=== PATIENT | female | born 2000 | race Caucasian/White ===

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

== ENCOUNTER 2020-10-01 12:37 | Emergency (ER) | payer OTHER ==
[2020-10-01 12:45] VITALS: O2SAT 98
[2020-10-01] MEDS ORDERED: ISENTRESS PO SCH (13:00)
--- NOTE | 2020-10-01 13:25 | ERPHSYRPT ---
- History of Present Illness Source: patient Patient Subjective Stated Complaint: Pt states "I was giving covid vaccine and went to put the safety on the needle and the needle went into my left thumb. I immidiately washed the area with soap and water." Triage Nursing Assessment: Pt presented alert and oriented X3, skin pwd pt ambulates with an upright steady gait, able to speak in clear full sentences pt in no apparent respiratory distress. Physician History: 20 yo wf got stuck L 1st digit w CV19 vac needle. Pt w UTD Tetanus/HepB. Pt is R handed and denies other/previous injury. Timing/Duration: other (Prior to arrival) Modifying Factors: Worsens With: cold therapy, eating, immobilization, medication, movement, rest, acetaminophen, ibuprofen, nothing Associated Symptoms: denies symptoms Allergies/Adverse Reactions: No Known Drug Allergies Allergy (Verified 10/01/20 12:45) Home Medications: Sertraline HCl [Zoloft] 100 mg PO DAILY 10/01/20 [History] Hx Tetanus, Diphtheria Vaccination/Date Given: No Hx Influenza Vaccination/Date Given: Yes Hx Pneumococcal Vaccination/Date Given: No Immunizations Up to Date: Yes Travel Risk - International Travel Have you traveled outside of the country in past 3 weeks: No - Coronavirus Screening Are you exhibiting any of the following symptoms?: No Close contact with a COVID-19 positive Pt in past 14-21 Days: No - Vaccine Status Have you recieved a Covid-19 vaccination: No - Review of Systems Constitutional: No Symptoms Eyes: No Symptoms Ears, Nose, & Throat: No Symptoms Respiratory: No Symptoms Cardiac: No Symptoms Abdominal/Gastrointestinal: No Symptoms Genitourinary Symptoms: No Symptoms Skin: No Symptoms Neurological: No Symptoms Psychological: No Symptoms Endocrine: No Symptoms Hematologic/Lymphatic: No Symptoms Immunological/Allergic: No Symptoms - Past Medical History Pertinent Past Medical History: Yes Neurological History: No Pertinent History ENT History: No Pertinent History Cardiac History: No Pertinent History Respiratory History: No Pertinent History Endocrine Medical History: No Pertinent History Musculoskeletal History: No Pertinent History GI Medical History: No Pertinent History History: No Pertinent History Psycho-Social History: Depression - Past Surgical History Past Surgical History: Yes - Social History Smoking Status: Never smoker Exposure to second hand smoke: Yes Drug Use: none Patient Lives Alone: No Significant Family History: no pertinent family hx - Female History Hx Last Menstrual Period: 09/03/2020 Hx Now: No - Nursing Vital Signs Nursing Vital Signs: Initial Vital Signs Temperature 98.1 F 10/01/20 12:41 Pulse Rate 80 10/01/20 12:41 Respiratory Rate 20 10/01/20 12:41 Blood Pressure 142/76 10/01/20 12:41 O2 Sat by Pulse Oximetry 98 10/01/20 12:41 Pain Scale Pain Intensity 0 - Physical Exam General Appearance: no apparent distress, lethargy Eye Exam: PERRL/EOMI Ears, Nose, Throat Exam: normal ENT inspection Neck Exam: normal inspection Respiratory Exam: normal breath sounds, lungs clear, airway intact, No respiratory distress Cardiovascular Exam: regular rate/rhythm, normal heart sounds, normal peripheral pulses, No murmur Gastrointestinal/Abdomen Exam: soft, normal bowel sounds, No tenderness Back Exam: normal inspection Extremity Exam: other (Very superficial puncture wound L distal 1st digit/Good hemostasis) Neurologic Exam: alert, oriented x 3, cooperative, corrections officer II-XII nml as tested, normal mood/affect, nml cerebellar function, nml station & gait, sensation nml, No motor deficits, No sensory deficit Skin Exam: normal color, warm, dry, No rash Lymphatic Exam: No adenopathy SpO2 Interpretation: normal SpO2: 98 O2 Delivery: Room Air Ordered Tests: Active Orders 24 hr Category Date Time Status Wound Care STAT Care 10/01/20 12:56 Completed CBC W DIFF Stat Lab 10/01/20 13:47 Completed CMP Stat Lab 10/01/20 13:47 Completed HCG QUALITATIVE,SERUM Stat Lab 10/01/20 13:47 Completed Medication Summary Discontinued Medications Generic Name Dose Route Start Last Admin Trade Name Moon PRN Reason Stop Dose Admin Emtricitabine/Tenofovir 1 tablet 10/01/20 12:56 10/01/20 14:39 Truvada 200 Mg-300 Mg Tablet PO 10/01/20 12:57 Not Given STAT STA Raltegravir 400 mg 10/01/20 13:00 Isentress PO 10/31/20 12:59 STAT ANIKA Lab/Rad Data: Laboratory Result Diagrams 10/01/20 13:47 10/01/20 13:47 Laboratory Results 10/01/20 10/01/20 10/01/20 Range/Units 13:47 13:47 13:47 WBC 12.9 H (4.0-10.5) K/mm3 RBC 3.94 L (4.1-5.4) M/mm3 Hgb 11.1 L (12.0-16.0) gm/dl Hct 35.4 (35-47) % MCV 89.8 (78-100) fl MCH 28.2 (26-32) pg MCHC 31.4 L (32-36) g/dl RDW 13.1 (11.5-14.0) % Plt Count 380 (150-450) K/mm3 MPV 10.1 (7.5-11.0) fl Gran % 61.1 (36.0-66.0) % Eos # (Auto) 0.17 (0-0.5) Absolute Lymphs (auto) 3.81 (1.0-4.6) Absolute Monos (auto) 1.01 (0.0-1.3) Lymphocytes % 29.6 (24.0-44.0) % Monocytes % 7.8 (0.0-12.0) % Eosinophils % 1.3 (0.00-5.0) % Basophils % 0.2 (0.0-0.4) % Absolute Granulocytes 7.86 H (1.4-6.9) Basophils # 0.03 (0-0.4) Sodium 138 (137-145) mmol/L Potassium 4.2 (3.5-5.1) mmol/L Chloride 103 (98-107) mmol/L Carbon Dioxide 30 (22-30) mmol/L Anion Gap 8.6 (5-15) MEQ/L BUN 10 (7-17) mg/dL Creatinine 0.72 (0.52-1.04) mg/dL Estimated GFR > 60.0 ML/MIN Glucose 92 (74-106) mg/dL Calcium 9.1 (8.4-10.2) mg/dL Total Bilirubin 0.30 (0.2-1.3) mg/dL AST 20 (14-36) U/L ALT 12 (0-35) U/L Alkaline Phosphatase 74 (38-126) U/L Serum Total Protein 6.8 (6.3-8.2) g/dL Albumin 4.0 (3.5-5.0) g/dL Serum , Qual NEGATIVE (Negative) - Progress Progress Note: 10/01/20 14:32 Hiv neg on pt who received the CV19 vaccine, so pt released wo PEP. Pt extremely low risk from superficial needle stick. Tetanus/HepB up to date on ER pt. Counseled pt/family regarding: need for follow-up - Departure Departure Disposition: Home Clinical Impression: Needle stick injury of finger Condition: Stable Critical Care Time: No Referrals: [facility] [Primary Care Provider] - Instructions: Blood or Body Fluid Exposure Additional Instructions: Wash wound twice a day with soap/water Watch for signs of infection-redness/pain/pus/temperature greater than 100.5
[2020-10-01 13:53] LABS: Absolute Neutrophil Ct (ANC) 7.86 (1.4-6.9); BASOPHIL % 0.2 % (0.0-0.4); Basophil (Absolute #) 0.03 (0-0.4); Eosinophil % 1.3 % (0.00-5.0); Eosinophil (Absolute #) 0.17 (0-0.5); Hematocrit 35.4 % (35-47); Hemoglobin 11.1 gm/dl (12.0-16.0); Lymphocyte (Absolute #) 3.81 (1.0-4.6); Lymphocytes % 29.6 % (24.0-44.0); Mean Cell Volume 89.8 fl (78-100); Mean Corpuscular Hemoglobin 28.2 pg (26-32); Mean Corpuscular Hgb Concent. 31.4 g/dl (32-36); Mean Platelet Volume 10.1 fl (7.5-11.0); Monocyte (Absolute #) 1.01 (0.0-1.3); Monocytes % 7.8 % (0.0-12.0); Neutrophil % 61.1 % (36.0-66.0); Platelet Count 380 K/mm3 (150-450); Red Blood Count 3.94 M/mm3 (4.1-5.4); Red Cell Distribution Width 13.1 % (11.5-14.0); White Blood Count 12.9 K/mm3 (4.0-10.5)
[2020-10-01 14:07] LABS: ALKALINE PHOSPHATASE 74 U/L (38-126); ANION GAP 8.6 MEQ/L (5-15); BLOOD UREA NITROGEN 10 mg/dL (7-17); CHLORIDE 103 mmol/L (98-107); Calcium 9.1 mg/dL (8.4-10.2); Carbon Dioxide 30 mmol/L (22-30); Creatinine 1 0.72 mg/dL (0.52-1.04); EST GLOMERULAR FILTRATION RATE > 60.0 ML/MIN; Glucose 92 mg/dL (74-106); Potassium 4.2 mmol/L (3.5-5.1); SGOT/AST 20 U/L (14-36); SGPT/ALT 12 U/L (0-35); SODIUM 138 mmol/L (137-145); Total Protein 6.8 g/dL (6.3-8.2)
[2020-10-01 14:14] VITALS: BP 134/62; PULSE 68
[2020-10-01] MEDS: TRUVADA 200 MG-300 MG TABLET PO STA (14:39)
== END 2020-10-01 14:48 | disposition home or self-care (01) ==
LOC: ER - EH 12:37
DX: S61.032A Puncture wound without foreign body of left thumb without damage to nail, initial encounter (principal); W46.0XXA Contact with hypodermic needle, initial encounter; Y93.89 Activity, other specified; Y92.89 Other specified places as the place of occurrence of the external cause
CPT/HCPCS: 36415; 80053; 81025; 85025; 86317; 86803; 87340; 87389; 99283

== ENCOUNTER 2021-05-10 21:59 | Observation (INO) | payer OTHER ==
[2021-05-10 23:23] LABS: Appearance SLIGHTLY CLOUDY (CLEAR); Bilirubin NEGATIVE (NEGATIVE); Blood NEGATIVE Ery/ul (0-5); Glucose NEGATIVE (NEGATIVE); Ketones NEGATIVE (NEGATIVE); Leukocyte Esterase NEGATIVE (NEGATIVE); Mucus SLIGHT /HPF (NEGATIVE); Nitrite NEGATIVE (NEGATIVE); Protein,Urine Dip NEGATIVE (Negative); Specific Gravity 1.015 (1.005-1.025); Urobilinogen NEGATIVE mg/dL (0-1)
[2021-05-10 23:35] LABS: Amphetamine,Urine NEGATIVE (NEGATIVE); Barbiturate,Urine NEGATIVE (NEGATIVE); Benzodiazepine,Urine NEGATIVE (NEGATIVE); Cocaine,Urine NEGATIVE (NEGATIVE); Methadone,Urine NEGATIVE (NEGATIVE); Opiate,Urine NEGATIVE (NEGATIVE); PCP,Urine NEGATIVE (NEGATIVE); THC,Urine NEGATIVE (NEGATIVE)
[2021-05-10] MEDS ORDERED: Dulcolax 10 MG SUPP ONE (23:35)
[2021-05-10] MEDS: Dulcolax 10 MG SUPP PR ONE (23:36)
[2021-05-13 17:04] VITALS: BP 136/84; PULSE 78; O2SAT 97
== END 2021-05-10 23:59 | disposition home or self-care (01) ==
LOC: OB 21:59
PROVIDERS: ADMIT Obstetrics & Gynecology; ATTEND Obstetrics & Gynecology
DX: Z34.83 Encounter for supervision of other normal pregnancy, third trimester (principal); Z3A.29 29 weeks gestation of pregnancy
CPT/HCPCS: 80307; 81001; G0378; A9270-GY

== ENCOUNTER 2021-05-13 19:28 | Observation (INO) | payer OTHER ==
[2021-05-13 20:01] VITALS: O2SAT 98
[2021-05-13 20:07] VITALS: BP 120/66; PULSE 93
== END 2021-05-13 20:30 | disposition home or self-care (01) ==
LOC: OB 19:28
PROVIDERS: ADMIT Obstetrics & Gynecology; ATTEND Obstetrics & Gynecology
DX: Z34.83 Encounter for supervision of other normal pregnancy, third trimester (principal); Z3A.29 29 weeks gestation of pregnancy
CPT/HCPCS: 59025; G0378

== ENCOUNTER 2021-05-30 12:40 | Observation (INO) | payer OTHER ==
[2021-05-30 13:18] VITALS: PULSE 78; O2SAT 99
[2021-05-30 15:28] VITALS: BP 136/63
== END 2021-05-30 13:35 | disposition home or self-care (01) ==
LOC: OB 12:40
PROVIDERS: ADMIT Obstetrics & Gynecology; ATTEND Obstetrics & Gynecology
DX: Z34.83 Encounter for supervision of other normal pregnancy, third trimester (principal); Z3A.32 32 weeks gestation of pregnancy
CPT/HCPCS: 59025; G0378

== ENCOUNTER 2021-06-06 12:33 | Observation (INO) | payer OTHER ==
[2021-06-06 13:54] VITALS: BP 121/63; PULSE 85
== END 2021-06-06 13:05 | disposition home or self-care (01) ==
LOC: OB 12:33
PROVIDERS: ADMIT Obstetrics & Gynecology; ATTEND Obstetrics & Gynecology
DX: Z34.83 Encounter for supervision of other normal pregnancy, third trimester (principal); Z3A.33 33 weeks gestation of pregnancy
CPT/HCPCS: 59025; G0378

== ENCOUNTER 2021-06-13 11:25 | Observation (INO) | payer OTHER ==
[2021-06-13 12:12] VITALS: BP 120/75; PULSE 96
== END 2021-06-13 12:02 | disposition home or self-care (01) ==
LOC: OB 11:25
PROVIDERS: ADMIT Obstetrics & Gynecology; ATTEND Obstetrics & Gynecology
DX: Z34.83 Encounter for supervision of other normal pregnancy, third trimester (principal); Z3A.34 34 weeks gestation of pregnancy
CPT/HCPCS: 59025; G0378

== ENCOUNTER 2021-06-26 08:41 | Observation (INO) | payer OTHER ==
[2021-06-26 09:40] VITALS: BP 110/64
== END 2021-06-26 09:20 | disposition home or self-care (01) ==
LOC: OB 08:41
PROVIDERS: ADMIT Obstetrics & Gynecology; ATTEND Obstetrics & Gynecology
DX: Z34.83 Encounter for supervision of other normal pregnancy, third trimester (principal); Z3A.36 36 weeks gestation of pregnancy
CPT/HCPCS: 59025; G0378

== ENCOUNTER 2021-07-05 12:31 | Observation (INO) | payer OTHER ==
[2021-07-05 12:55] VITALS: BP 128/75; PULSE 79
== END 2021-07-05 13:14 | disposition home or self-care (01) ==
LOC: MED SURG 12:31
PROVIDERS: ADMIT Obstetrics & Gynecology; ATTEND Obstetrics & Gynecology
DX: Z34.83 Encounter for supervision of other normal pregnancy, third trimester (principal); Z3A.37 37 weeks gestation of pregnancy
CPT/HCPCS: 59025; G0378

== ENCOUNTER 2021-07-07 23:21 | Inpatient (IN) | payer OTHER ==
[2021-07-08] MEDS ORDERED: FENTANYL 2 MCG-BUPIV 0.125%-NS 250 ML Epidur 250 ML EPIDURAL SCH (06:00)
[2021-07-08] MEDS ORDERED: Zofran 4 MG/2 ML VIAL IV PRN (06:00)
[2021-07-08] MEDS ORDERED: TYLENOL EXTRA STRENGTH 500 MG PO PRN (06:00)
[2021-07-08] MEDS ORDERED: Lactated Ringers 1,000 ML IV ONE (06:00)
[2021-07-08] MEDS ORDERED: Ephedrine Sulfate 50 MG/ML IV PRN (07:00)
[2021-07-08] MEDS ORDERED: PITOCIN 30 UNITS/ LR 500 ML 30 UNITS/500 ML PLAST..BAG IV SCH ×2 (07:00→12:00)
[2021-07-08] MEDS ORDERED: BRETHINE 1 MG/ML SQ PRN (07:00)
[2021-07-08 07:04] LABS: Absolute Neutrophil Ct (ANC) 10.76 (1.4-6.9); Basophil (Absolute #) 0.03 (0-0.4); Eosinophil % 1.8 % (0.00-5.0); Hemoglobin 8.9 gm/dl (12.0-16.0); Lymphocyte (Absolute #) 4.84 (1.0-4.6); Lymphocytes % 28.8 % (24.0-44.0); Mean Cell Volume 82.4 fl (78-100); Mean Corpuscular Hemoglobin 26.2 pg (26-32); Mean Corpuscular Hgb Concent. 31.8 g/dl (32-36); Mean Platelet Volume 9.2 fl (7.5-11.0); Monocytes % 5.3 % (0.0-12.0); Neutrophil % 63.9 % (36.0-66.0); Platelet Count 334 K/mm3 (150-450); Red Cell Distribution Width 14.2 % (11.5-14.0); White Blood Count 16.8 K/mm3 (4.0-10.5)
[2021-07-08 07:09] LABS: Appearance CLEAR (CLEAR); Bilirubin NEGATIVE (NEGATIVE); Blood NEGATIVE Ery/ul (0-5); Glucose NEGATIVE (NEGATIVE); Ketones NEGATIVE (NEGATIVE); Leukocyte Esterase NEGATIVE (NEGATIVE); Mucus SLIGHT /HPF (NEGATIVE); Nitrite NEGATIVE (NEGATIVE); Protein,Urine Dip NEGATIVE (Negative); Urobilinogen NEGATIVE mg/dL (0-1)
[2021-07-08] MEDS ORDERED: Sensorcaine 0.25% 10 ML ONE (07:28)
[2021-07-08 07:52] LABS: Amphetamine,Urine NEGATIVE (NEGATIVE); Barbiturate,Urine NEGATIVE (NEGATIVE); Benzodiazepine,Urine NEGATIVE (NEGATIVE); Cocaine,Urine NEGATIVE (NEGATIVE); Methadone,Urine NEGATIVE (NEGATIVE); Opiate,Urine NEGATIVE (NEGATIVE); PCP,Urine NEGATIVE (NEGATIVE); THC,Urine NEGATIVE (NEGATIVE)
[2021-07-08] MEDS: Lactated Ringers 1,000 ML IV SCH ×2 (08:57→15:42)
[2021-07-08] MEDS ORDERED: XYLOCAINE 1% HCL 20 ML MDV IJ PRN (12:00)
[2021-07-08] MEDS ORDERED: Dermoplast Spray TP PRN (17:32)
[2021-07-08] MEDS ORDERED: LANSINOH 40 GM TOP PRN (17:32)
[2021-07-08] MEDS ORDERED: Mylicon 80MG PO PRN (17:32)
[2021-07-08] MEDS ORDERED: TUCKS TP PRN (17:32)
--- NOTE | 2021-07-08 21:51 | PCM.HP ---
History of Present Illness - Chief Complaint Chief Complaint: LABOR INDUCTION FOR SGA, COVID DURING AND [facility] REC History of Present Illness: is a 20 year old female. 20 YO IUP AT 38 WKS WITH CURRENT HX OF DIAGNOSED POSITIVE INFLUENZA AND CURRENT HX OF SMALL FOR GESTATIONAL AGE FETUS HERE FOR INDUCTION. PT WITH RECENTLY DIAGNOSED COVID AND RECEIVED MONOCLONAL ANTIBODY FOR TREATMENT. PT HAD BEEN SEEING M DR LEACH WHO RECOMMENDS DELIVERY AT 38 WKS GESTATION SECONDARY TO RECENT HX OF COVID, SMALL FOR GESTATIONAL AGE, AND CURRENT HX OF BEING DIAGNOSED WITH INFLUENZA. HER CONCERN WAS PLACENTAL ABNORMALITY THAT MAY BE EXACERBATED WITH HER RECENT DIAGNOSIS OF C OVID AND SUBSEQUENT SMALL FOR GESTATIONAL AGE FETUS. PT STATES IRREGULAR CONTX AND DENIES VAGINAL BLEEDING OR SROM. Medications & Allergies Home Medications: Home Medication List Sertraline HCl [Zoloft] 100 mg PO DAILY 10/01/20 [History Confirmed 07/08/21] Buspirone HCl 5 mg [Buspar 5 mg] 10 mg PO DAILY 05/10/21 [History Confirmed 07/08/21] Calcium Carbonate [Tums Smoothies] 600 mg PO Q6H PRN PRN 05/10/21 [History Confirmed 07/08/21] Vits W-Ca,Fe,FA(<1Mg) [] 1 tab PO DAILY 05/10/21 [History Confirmed 07/08/21] Fluticasone Propionate [Flonase NASAL] 16 gm NS DAILY 07/08/21 [History Confirmed 07/08/21] Loratadine [Claritin] 10 mg PO DAILY 07/08/21 [History Confirmed 07/08/21] Allergies/Adverse Reactions: Allergies Allergy/AdvReac Type Severity Reaction Status Date / Time No Known Drug Allergies Allergy Verified 07/08/21 07:20 - Past Medical History Past Medical History: Yes Neurological History: No Pertinent History ENT History: No Pertinent History Cardiac History: No Pertinent History CARDIAC HISTORY: No Pertinent History Respiratory History: No Pertinent History, Other (CONGESTION ) Endocrine Medical History: No Pertinent History Musculoskelatal History: No Pertinent History GI Medical History: No Pertinent History History: No Pertinent History Pyscho-Social History: Depression Reproductive Disorders: No Pertinent History, Other (GRAVID) Comment: T&A removed 2008. wisdom teeth removed - Female History Expected Date of Delivery: 07/22/21 - Past Surgical History Past Surgical History: Yes Neuro Surgical History: No Pertinent History Cardiac History: No Pertinent History Respiratory Surgery: No Pertinent History GI Surgical History: No Pertinent History Genitourinary Surgical Hx: No Pertinent History Musculskeletal Surgical Hx: No Pertinent History Female Surgical History: No Pertinent History, Other ( X 1) - Social History Smoking Status: Never smoker Exposure to second hand smoke: Yes Alcohol: None Drug Use: none Significant Family History: no pertinent family hx - Physical Exam Vital Signs: Vital Signs - 24 hr Temp Pulse Resp BP BP Pulse Ox 07/08/21 21:00 98.8 F 82 18 132/71 07/08/21 20:00 98.8 F 82 18 132/71 07/08/21 19:00 98.0 F 75 20 133/73 07/08/21 18:30 98.0 F 18 117/65 07/08/21 18:00 98.0 F 18 L 18 117/61 07/08/21 17:45 98.0 F 18 L 18 118/68 07/08/21 17:30 98.0 F 83 18 121/66 07/08/21 17:15 98.0 F 74 18 119/78 07/08/21 17:00 98.0 F 92 H 18 117/76 07/08/21 16:45 98.0 F 84 18 117/56 07/08/21 16:36 98.0 F 101 H 18 141/64 07/08/21 16:30 98.0 F 86 18 123/59 07/08/21 16:15 98.0 F 86 18 123/59 07/08/21 16:00 98.0 F 84 18 117/56 07/08/21 15:45 98.0 F 76 18 117/60 07/08/21 15:30 97.8 F 82 18 115/56 07/08/21 15:15 97.8 F 74 18 120/56 07/08/21 15:00 97.8 F 83 18 125/66 07/08/21 14:45 97.8 F 83 18 125/66 07/08/21 14:30 97.8 F 89 18 120/60 07/08/21 14:15 97.8 F 89 18 120/60 07/08/21 14:00 97.8 F 86 18 124/62 07/08/21 13:45 97.8 F 86 20 124/60 07/08/21 13:30 97.8 F 81 18 125/58 07/08/21 13:15 97.8 F 85 18 124/57 07/08/21 13:00 97.8 F 101 H 18 121/59 07/08/21 12:45 97.8 F 86 18 124/62 07/08/21 12:30 97.8 F 86 18 124/62 07/08/21 12:15 97.8 F 73 18 99/55 07/08/21 12:00 97.8 F 85 18 90/51 90/51 07/08/21 11:45 97.8 F 85 18 90/51 07/08/21 11:30 96.8 F 73 18 97/52 07/08/21 11:15 96.8 F 76 18 105/52 07/08/21 11:00 96.8 F 76 18 114/58 07/08/21 10:45 96.8 F 85 18 124/61 07/08/21 10:30 96.8 F 86 18 120/62 07/08/21 10:15 96.8 F 90 18 120/61 07/08/21 10:00 99 H 18 125/70 07/08/21 09:45 96 H 18 115/67 07/08/21 09:30 96 H 18 116/62 07/08/21 09:15 80 18 122/66 07/08/21 09:09 96.8 F 96 H 16 116/62 96 07/08/21 09:00 93 H 18 121/61 07/08/21 08:45 88 18 121/56 07/08/21 08:30 76 18 126/58 100 07/08/21 08:15 100 H 18 118/57 100 07/08/21 08:00 98.0 F 91 H 18 115/67 95/55 100 07/08/21 07:45 86 18 126/62 100 07/08/21 07:30 90 18 146/80 100 07/08/21 07:00 124/60 07/08/21 06:00 97 F 88 20 127/69 98 General Appearance: no apparent distress Neurologic Exam: alert, oriented x 3, cooperative Pelvic Exam: other (2/80/-2/VTX/INTACT) Rectal Exam: deferred Results - Labs Lab/Micro Results: Lab Results-Last 24 Hours 07/08/21 07/08/21 07/08/21 Range/Units 06:00 06:00 06:00 WBC 16.8 H (4.0-10.5) K/mm3 RBC 3.40 L (4.1-5.4) M/mm3 Hgb 8.9 L (12.0-16.0) gm/dl Hct 28.0 L (35-47) % MCV 82.4 (78-100) fl MCH 26.2 (26-32) pg MCHC 31.8 L (32-36) g/dl RDW 14.2 H (11.5-14.0) % Plt Count 334 (150-450) K/mm3 MPV 9.2 (7.5-11.0) fl Gran % 63.9 (36.0-66.0) % Eos # (Auto) 0.30 (0-0.5) Absolute Lymphs (auto) 4.84 H (1.0-4.6) Absolute Monos (auto) 0.90 (0.0-1.3) Lymphocytes % 28.8 (24.0-44.0) % Monocytes % 5.3 (0.0-12.0) % Eosinophils % 1.8 (0.00-5.0) % Basophils % 0.2 (0.0-0.4) % Absolute Granulocytes 10.76 H (1.4-6.9) Basophils # 0.03 (0-0.4) Urine Color YELLOW (YELLOW) Urine Appearance CLEAR (CLEAR) Urine pH 7.0 (5-6) Ur Specific [place] 1.010 (1.005-1.025) Urine Protein NEGATIVE (Negative) Urine Ketones NEGATIVE (NEGATIVE) Urine Blood NEGATIVE (0-5) Shashi/ul Urine Nitrite NEGATIVE (NEGATIVE) Urine Bilirubin NEGATIVE (NEGATIVE) Urine Urobilinogen NEGATIVE (0-1) mg/dL Ur Leukocyte Esterase NEGATIVE (NEGATIVE) Urine WBC (Auto) NONE (0-5) /HPF Urine RBC (Auto) NONE (0-2) /HPF U Epithel Cells (Auto) NONE (FEW) /HPF Urine Bacteria (Auto) NONE (NEGATIVE) /HPF Urine Mucus (Auto) SLIGHT (NEGATIVE) /HPF Urine Culture Reflexed NO (NO) Urine Glucose NEGATIVE (NEGATIVE) mg/dL Urine Opiates Level NEGATIVE (NEGATIVE) Ur Methadone NEGATIVE (NEGATIVE) Urine Barbiturates NEGATIVE (NEGATIVE) Ur Phencyclidine (PCP) NEGATIVE (NEGATIVE) Urine Amphetamine NEGATIVE (NEGATIVE) U Benzodiazepine Level NEGATIVE (NEGATIVE) Urine Cocaine NEGATIVE (NEGATIVE) Urine Marijuana (THC) NEGATIVE (NEGATIVE) Assessment/Plan (1) History of COVID-19 Current Visit: Yes Status: Acute Code(s): Z86.16 - PERSONAL HISTORY OF COVID-19 (2) Small for gestational age fetus Current Visit: Yes Status: Acute Code(s): VHP3688 - (3) Influenza A Current Visit: Yes Status: Acute Code(s): J10.1 - FLU DUE TO OTH IDENT INFLUENZA VIRUS W OTH RESP MANIFEST
--- NOTE | 2021-07-08 21:56 | PCM.BN ---
Brief Admission Note - Admission Note Brief Admisson Note: Patient admitted @ 07/08/21 08:25 to MED SURG. Medication List reviewed and reconciled. 20 YO IUP 38 WKS CURRENTLY ADMITTED FOR INDUCTION SECONDARY TO RECOMMENDATION BY Rosemarie LEACH SECONDARY TO RECENT HX OF COVID WITH SUBSEQUENT SMALL FOR GESTATIONAL AGE FETUS AND CURRENT HX OF INFLUENZA. DENIES SROM OR VAGINAL BLEEDING.
[2021-07-08] MEDS: Colace 100 MG PO SCH (23:40)
[2021-07-09] MEDS: MOTRIN 400 MG PO PRN ×2 (00:25→09:51)
[2021-07-09] MEDS: Lactated Ringers 1,000 ML IV SCH (00:27)
[2021-07-09 05:57] LABS: Basophil (Absolute #) 0.02 (0-0.4); Eosinophil % 1.1 % (0.00-5.0); Eosinophil (Absolute #) 0.21 (0-0.5); Hematocrit 29.8 % (35-47); Hemoglobin 9.3 gm/dl (12.0-16.0); Lymphocyte (Absolute #) 4.38 (1.0-4.6); Lymphocytes % 22.6 % (24.0-44.0); Mean Cell Volume 82.5 fl (78-100); Mean Corpuscular Hemoglobin 25.8 pg (26-32); Mean Corpuscular Hgb Concent. 31.2 g/dl (32-36); Mean Platelet Volume 9.8 fl (7.5-11.0); Monocyte (Absolute #) 1.19 (0.0-1.3); Monocytes % 6.1 % (0.0-12.0); Neutrophil % 70.1 % (36.0-66.0); Platelet Count 321 K/mm3 (150-450); Red Blood Count 3.61 M/mm3 (4.1-5.4); Red Cell Distribution Width 14.3 % (11.5-14.0); White Blood Count 19.4 K/mm3 (4.0-10.5)
[2021-07-09 08:03] LABS: HBsAg Screen Negative (Negative)
[2021-07-09] MEDS ORDERED: Adacel Vial IM ONE (09:00)
--- NOTE | 2021-07-09 09:23 | PCM.NOTE ---
Date and Time: 07/09/21920 Subjective Assessment: PT RESTING IN BED AND DOING WELL. ABLE TO AMBULATE AND TOLERATE DIET VSS AFEBRILE ABD; SOFT UTERUS; FIRM LOCHIA; MILD HGB; 9.3 A/P SP PPD 1 DESIRES TO GO HOME TODAY WILL DC HOME TODAY AND FU OFFICE IN 3 WKS OBJECTIVE DATA Vital Signs: Vital Signs - 24 hr Temp Pulse Resp BP BP Pulse Ox 07/09/21 08:00 98.3 F 93 H 18 128/71 99 07/09/21 04:00 98.1 F 76 18 131/76 07/09/21 00:00 98.1 F 79 18 140/70 07/08/21 21:00 98.8 F 82 18 132/71 07/08/21 20:00 98.8 F 82 18 132/71 07/08/21 19:00 98.0 F 75 20 133/73 07/08/21 18:30 98.0 F 18 117/65 07/08/21 18:00 98.0 F 18 L 18 117/61 07/08/21 17:45 98.0 F 18 L 18 118/68 07/08/21 17:30 98.0 F 83 18 121/66 07/08/21 17:15 98.0 F 74 18 119/78 07/08/21 17:00 98.0 F 92 H 18 117/76 07/08/21 16:45 98.0 F 84 18 117/56 07/08/21 16:36 98.0 F 101 H 18 141/64 07/08/21 16:30 98.0 F 86 18 123/59 07/08/21 16:15 98.0 F 86 18 123/59 07/08/21 16:00 98.0 F 84 18 117/56 07/08/21 15:45 98.0 F 76 18 117/60 07/08/21 15:30 97.8 F 82 18 115/56 07/08/21 15:15 97.8 F 74 18 120/56 07/08/21 15:00 97.8 F 83 18 125/66 07/08/21 14:45 97.8 F 83 18 125/66 07/08/21 14:30 97.8 F 89 18 120/60 07/08/21 14:15 97.8 F 89 18 120/60 07/08/21 14:00 97.8 F 86 18 124/62 07/08/21 13:45 97.8 F 86 20 124/60 07/08/21 13:30 97.8 F 81 18 125/58 07/08/21 13:15 97.8 F 85 18 124/57 07/08/21 13:00 97.8 F 101 H 18 121/59 07/08/21 12:45 97.8 F 86 18 124/62 07/08/21 12:30 97.8 F 86 18 124/62 07/08/21 12:15 97.8 F 73 18 99/55 07/08/21 12:00 97.8 F 85 18 90/51 90/51 07/08/21 11:45 97.8 F 85 18 90/51 07/08/21 11:30 96.8 F 73 18 97/52 07/08/21 11:15 96.8 F 76 18 105/52 07/08/21 11:00 96.8 F 76 18 114/58 07/08/21 10:45 96.8 F 85 18 124/61 07/08/21 10:30 96.8 F 86 18 120/62 07/08/21 10:15 96.8 F 90 18 120/61 07/08/21 10:00 99 H 18 125/70 07/08/21 09:45 96 H 18 115/67 07/08/21 09:30 96 H 18 116/62 Pain Assessment - Last Documented Pain Intensity [Lower] 1 Pain Intensity 5 Intake and Output: Intake & Output 07/06/21 07/07/21 07/08/21 07/09/21 11:59 11:59 11:59 11:59 Intake Total 3500 Output Total 1700 Balance 1800 Weight 209 kg Lab Results: Lab Results-Last 24 Hours 07/08/21 07/09/21 Range/Units 06:00 04:00 WBC 19.4 H (4.0-10.5) K/mm3 RBC 3.61 L (4.1-5.4) M/mm3 Hgb 9.3 L (12.0-16.0) gm/dl Hct 29.8 L (35-47) % MCV 82.5 (78-100) fl MCH 25.8 L (26-32) pg MCHC 31.2 L (32-36) g/dl RDW 14.3 H (11.5-14.0) % Plt Count 321 (150-450) K/mm3 MPV 9.8 (7.5-11.0) fl Gran % 70.1 H (36.0-66.0) % Eos # (Auto) 0.21 (0-0.5) Absolute Lymphs (auto) 4.38 (1.0-4.6) Absolute Monos (auto) 1.19 (0.0-1.3) Lymphocytes % 22.6 L (24.0-44.0) % Monocytes % 6.1 (0.0-12.0) % Eosinophils % 1.1 (0.00-5.0) % Basophils % 0.1 (0.0-0.4) % Absolute Granulocytes 13.60 H (1.4-6.9) Basophils # 0.02 (0-0.4) Hep Bs Antigen Negative (Negative) Multi-Disciplinary Progress Notes: Multi-Disciplinary Progress Notes 07/08/21 17:14 Respiratory Note by Simran Blanchard PRESENT DURING DELIVERY. NO RESPIRATORY INTERVENTIONS REQUIRED. Initialized on 07/08/21 17:14 - END OF NOTE Assessment/Plan (1) History of COVID-19 Current Visit: Yes Status: Acute Code(s): Z86.16 - PERSONAL HISTORY OF COVID-19 (2) Small for gestational age fetus Current Visit: Yes Status: Acute Code(s): [id number] - (3) Influenza A Current Visit: Yes Status: Acute Code(s): J10.1 - FLU DUE TO OTH IDENT INFLUENZA VIRUS W OTH RESP MANIFEST (4) Vaginal delivery Current Visit: Yes Status: Acute Code(s): O80 - ENCOUNTER FOR FULL-TERM UNCOMPLICATED DELIVERY
--- NOTE | 2021-07-09 09:28 | PCM.DS ---
Discharge Summary Date of Admission: 07/08/21 08:25 Admitting Physician: DUANE PINEDA DO Consults: Consults on Case 07/08/21 08:00 Notify Anesthesia Provider PRN Primary Care Provider: FRANCK GERMAN Allergies Allergies No Known Drug Allergies Allergy (Verified 07/08/21 07:20) Hospital Summary - Hospital Course Hospital Course: PT WAS ADMITTED ON JUL 08 FOR INDUCTION SECONDARY TO HX OF HAVING COVID RECENTLY DIAGNOSED SHE HAD BEEN TREATED WITH MONOCLONAL ANTIBODY AND CURRENTLY BEING FOLLLOWED BY M DR LEACH FOR SMALL FOR GESTATIONAL AGE FETUS WHO DETERMINED TO HAVE PT INDUCED SECONDARY TO THE FINDINGS. PT ALSO KNOWN TO HAVE INFLUENZA AT THE TIME OF ADMISSION. PT WAS STARTED ON PITOCIN AND SUBSEQUENTLY DELIVERED LIVE BABY GIRL WITHOUT COMPLICATION. DURING PERIOD DID WELL AND TODAY DESIRES TO BE DISCHARGED HOME. PT WILL FU IN OFFICE IN 3 WKS ADVISED AND WAS TOLD TO CALL OFFICE FOR ANY ISSUES THAT MAY ARISE. ALL QUESTIONS ANSWERED TO HER SATISFACTION. - Vitals & Intake/Output Vital Signs: Vital Signs Temperature 98.3 F 07/09/21 08:00 Pulse Rate 93 H 07/09/21 08:00 Respiratory Rate 18 07/09/21 08:00 Blood Pressure 128/71 07/09/21 08:00 O2 Sat by Pulse Oximetry 99 07/09/21 08:00 Intake & Output: Intake & Output 07/06/21 07/07/21 07/08/21 07/09/21 11:59 11:59 11:59 11:59 Intake Total 3500 Output Total 1700 Balance 1800 Weight 209 kg - Lab Result Diagrams: 07/09/21 04:00 Lab Results-Last 24 Hrs: Lab Results-Last 24 Hours 07/08/21 07/09/21 Range/Units 06:00 04:00 WBC 19.4 H (4.0-10.5) K/mm3 RBC 3.61 L (4.1-5.4) M/mm3 Hgb 9.3 L (12.0-16.0) gm/dl Hct 29.8 L (35-47) % MCV 82.5 (78-100) fl MCH 25.8 L (26-32) pg MCHC 31.2 L (32-36) g/dl RDW 14.3 H (11.5-14.0) % Plt Count 321 (150-450) K/mm3 MPV 9.8 (7.5-11.0) fl Gran % 70.1 H (36.0-66.0) % Eos # (Auto) 0.21 (0-0.5) Absolute Lymphs (auto) 4.38 (1.0-4.6) Absolute Monos (auto) 1.19 (0.0-1.3) Lymphocytes % 22.6 L (24.0-44.0) % Monocytes % 6.1 (0.0-12.0) % Eosinophils % 1.1 (0.00-5.0) % Basophils % 0.1 (0.0-0.4) % Absolute Granulocytes 13.60 H (1.4-6.9) Basophils # 0.02 (0-0.4) Hep Bs Antigen Negative (Negative) - Procedures and Test Procedures and Tests throughout Hospitalization: Therapy Orders & Screens 07/08/21 17:14 Standby ROUTINE Comment: Diagnosis: LABOR INDUCTION FOR SGA, COVID DURING AND M REC Final Diagnosis/Problem List - Final Discharge Diagnosis/Problem (1) History of COVID-19 Current Visit: Yes Status: Acute Code(s): Z86.16 - PERSONAL HISTORY OF COVID-19 (2) Small for gestational age fetus Current Visit: Yes Status: Acute Code(s): [id number] - (3) Influenza A Current Visit: Yes Status: Acute Code(s): J10.1 - FLU DUE TO OTH IDENT INFLUENZA VIRUS W OTH RESP MANIFEST (4) Vaginal delivery Current Visit: Yes Status: Acute Code(s): O80 - ENCOUNTER FOR FULL-TERM UNCOMPLICATED DELIVERY - Discharge Discharge Date: 07/09/21 Disposition: Home, Self-Care Condition: Stable Prescriptions: No Action Sertraline HCl [Zoloft] 100 mg PO DAILY Vits W-Ca,Fe,FA(<1Mg) [] 1 tab PO DAILY Calcium Carbonate [Tums Smoothies] 600 mg PO Q6H PRN PRN PRN Reason: Indigestion Buspirone HCl 5 mg [Buspar 5 mg] 10 mg PO DAILY Loratadine [Claritin] 10 mg PO DAILY Fluticasone Propionate [Flonase NASAL] 16 gm NS DAILY Instructions: Labor Induction Follow up with: FRANCK GERMAN NP [Primary Care Provider] - DUANE PINEDA DO [ACTIVE STAFF] - 3 weeks (NO HEAVY LIFTING NO INTERCOURSE FOR 4 WKS)
[2021-07-09] MEDS: Colace 100 MG PO SCH (09:51)
[2021-07-09] MEDS ORDERED: FERREX 150 PO SCH (10:00)
[2021-07-09 15:40] VITALS: O2SAT 98
[2021-07-09 19:54] VITALS: BP 136/62; PULSE 82
== END 2021-07-09 20:31 | disposition home or self-care (01) | DRG 806 ==
LOC: MED SURG 07-08 05:25 → OBSVTOIN 07-08 08:25
PROVIDERS: ADMIT Obstetrics & Gynecology; ATTEND Obstetrics & Gynecology
PROC: 10E0XZZ Delivery of Products of Conception, External Approach (ICD-10-PCS; principal; 2021-07-08)
DX: O36.5930 Maternal care for other known or suspected poor fetal growth, third trimester, not applicable or unspecified (principal); O98.52 Other viral diseases complicating childbirth; Z37.0 Single live birth; Z86.16 Personal history of COVID-19; Z3A.38 38 weeks gestation of pregnancy; B33.8 Other specified viral diseases
CPT/HCPCS: 0241U; 36415; 59400; 80307; 81001; 85025; 86850; 86900; 86901; 87340; 90471; 90715; 94799; G0378; J2590; A9270-GY

== ENCOUNTER 2022-01-23 01:18 | Emergency (ER) | payer OTHER ==
[2022-01-23 01:43] LABS: Appearance CLEAR (CLEAR); Bilirubin NEGATIVE (NEGATIVE); Glucose NEGATIVE (NEGATIVE); Ketones NEGATIVE (NEGATIVE); RBC SMALL Ery/ul (0-5); Specific Gravity 1.025 (1.005-1.025)
[2022-01-23 01:44] LABS: Dipstick done @ ? MAIN LAB; Nitrite NEGATIVE (NEGATIVE); Protein,Urine Dip NEGATIVE (Negative); Urobilinogen 0.2 mg/dL (0-1)
[2022-01-23 01:45] LABS: Urine Cultured Indicated? NO
[2022-01-23] MEDS ORDERED: CITROMA 296 ML PO ONE (04:06)
--- NOTE | 2022-01-23 04:09 | ERPHSYRPT ---
- History of Present Illness Time Seen by Provider: 01/23/22 01:30 Historian: patient Exam Limitations: no limitations Patient Subjective Stated Complaint: My belly hurts and I think its constipation Triage Nursing Assessment: pt ambulated into ER. Pt c/o low abd pain since Thursday, pt states, "I think it's constipation". Abd soft with active bs x4 quad, nontender on palpation. Pt does have some flank pain as well. LBM was 01/17/22, pt last ate at 6pm last evening. Pt has been taking miralax tid since Thursday. Physician History: This is a 21-year-old white female who has had generalized abdominal pain and constipation for approximately 3 days. She has been taking MiraLAX 3 times a day daily for the last few days. She has not used any other method of relieving her constipation. She is also had some Tylenol. The only other time she recalls being constipated when she was . She has not had any vomiting. She denies fever and chills. She denies vomiting and diarrhea. She has not had chest pain and she is not short of breath Timing/Duration: day(s) (3), other (Not worse but persistent) Activities at Onset: none Quality: fullness, pressure Abdominal Pain Onset Location: generalized abdomen Severity of Pain-Max: mild (To moderate) Severity of Pain-Current: mild (To moderate) Modifying Factors: Improves With: nothing Associated Symptoms: loss of appetite, nausea, No chest pain, No diarrhea, No shortness of breath, No vomiting Allergies/Adverse Reactions: No Known Drug Allergies Allergy (Verified 01/23/22 01:34) Home Medications: Sertraline HCl [Zoloft] 100 mg PO DAILY 10/01/20 [History] Buspirone HCl 5 mg [Buspar 5 mg] 10 mg PO DAILY 05/10/21 [History] Fluticasone Propionate [Flonase NASAL] 16 gm NS DAILY 07/08/21 [History] Hx Tetanus, Diphtheria Vaccination/Date Given: Yes Hx Influenza Vaccination/Date Given: Yes Hx Pneumococcal Vaccination/Date Given: No Immunizations Up to Date: Yes Travel Risk - International Travel Have you traveled outside of the country in past 3 weeks: No - Coronavirus Screening Are you exhibiting any of the following symptoms?: No Close contact with a COVID-19 positive Pt in past 14-21 Days: No - Vaccine Status Have you recieved a Covid-19 vaccination: Yes 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 - Review of Systems Constitutional: No Symptoms Eyes: No Symptoms Ears, Nose, & Throat: No Symptoms Respiratory: No Symptoms Cardiac: No Symptoms Abdominal/Gastrointestinal: Abdominal Pain, Nausea, Constipation, No Vomiting, No Diarrhea Genitourinary Symptoms: No Symptoms Musculoskeletal: No Symptoms Skin: No Symptoms Neurological: No Symptoms Psychological: No Symptoms Endocrine: No Symptoms Hematologic/Lymphatic: No Symptoms Immunological/Allergic: No Symptoms All Other Systems: Reviewed and Negative - Past Medical History Pertinent Past Medical History: Yes Neurological History: No Pertinent History ENT History: No Pertinent History Cardiac History: No Pertinent History Respiratory History: No Pertinent History Endocrine Medical History: No Pertinent History Musculoskeletal History: No Pertinent History GI Medical History: No Pertinent History History: No Pertinent History Psycho-Social History: Depression Female Reproductive Disorders: No Pertinent History, Other Other Medical History: T&A removed 2008. wisdom teeth removed - Past Surgical History Past Surgical History: Yes Neuro Surgical History: No Pertinent History Cardiac: No Pertinent History Respiratory: No Pertinent History Gastrointestinal: No Pertinent History Genitourinary: No Pertinent History Musculoskeletal: No Pertinent History Female Surgical History: No Pertinent History, Other - Social History Smoking Status: Never smoker Exposure to second hand smoke: Yes Drug Use: none Patient Lives Alone: No Significant Family History: no pertinent family hx - Female History Hx Last Menstrual Period: 01/08/22 Hx Now: No - Nursing Vital Signs Nursing Vital Signs: Initial Vital Signs Temperature 97.1 F 01/23/22 01:24 Pulse Rate 77 01/23/22 01:24 Respiratory Rate 18 01/23/22 01:24 Blood Pressure 135/85 01/23/22 01:24 O2 Sat by Pulse Oximetry 100 01/23/22 01:24 Pain Scale Pain Intensity 1 - Physical Exam General Appearance: no apparent distress, alert, anxiety, thin Eye Exam: PERRL/EOMI, eyes nml inspection Ears, Nose, Throat Exam: normal ENT inspection, moist mucous membranes Neck Exam: normal inspection, non-tender, supple, full range of motion Respiratory Exam: normal breath sounds, lungs clear, airway intact, No chest tenderness, No respiratory distress Cardiovascular Exam: regular rate/rhythm, normal heart sounds, normal peripheral pulses Gastrointestinal/Abdomen Exam: soft, normal bowel sounds, tenderness (Mild diffuse with palpation), No guarding, No rebound Pelvic Exam: not done Rectal Exam: not done Back Exam: normal inspection, normal range of motion, No CVA tenderness, No vertebral tenderness Extremity Exam: normal inspection, normal range of motion, pelvis stable Neurologic Exam: alert, oriented x 3, cooperative, 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, normal mood/affect, nml cerebellar function, nml station & gait, sensation nml Skin Exam: normal color, warm, dry Lymphatic Exam: No adenopathy SpO2 Interpretation: normal SpO2: 98 O2 Delivery: Room Air - Course Nursing assessment & vital signs reviewed: Yes Ordered Tests: Active Orders 24 hr Category Date Time Status Enema STAT Care 01/23/22 04:07 Active ABDOMEN AND PELVIS W/0 CONTRAS [CT] Stat Exams 01/23/22 01:39 Taken HCG,QUALITATIVE URINE Stat Lab 01/23/22 01:34 Completed UA W/RFX CULTURE Stat Lab 01/23/22 01:35 Completed Medication Summary Discontinued Medications Generic Name Dose Route Start Last Admin Trade Name Freq PRN Reason Stop Dose Admin Magnesium Citrate 296 ml 01/23/22 04:06 01/23/22 04:20 Magnesium Citrate 296 Ml Solution PO 01/23/22 04:07 296 ml STAT ONE Administration Magnesium Citrate Confirm 01/23/22 04:19 Magnesium Citrate 296 Ml Solution Administered 01/23/22 04:20 Dose 296 ml .ROUTE .STK-MED ONE Lab/Rad Data: Laboratory Results 01/23/22 01/23/22 Range/Units 01:35 01:34 Urinalys Dipstick Clnc MAIN LAB Urine Color YELLOW (YELLOW) Urine Appearance CLEAR (CLEAR) Urine pH 7.0 (5-6) Ur Specific Onset 1.025 (1.005-1.025) POC Urine Protein Conf NEGATIVE (Negative) Urine Ketones NEGATIVE (NEGATIVE) Urine Nitrite NEGATIVE (NEGATIVE) Urine Bilirubin NEGATIVE (NEGATIVE) Urine Urobilinogen 0.2 (0-1) mg/dL Urine Leukocytes NEGATIVE (NEGATIVE) Urine WBC (Auto) NONE (0-5) /HPF Urine RBC (Auto) 3-5 (0-2) /HPF U Epithel Cells (Auto) NONE (FEW) /HPF Urine Bacteria (Auto) NONE (NEGATIVE) /HPF Urine RBC SMALL (0-5) Shashi/ul Ur Culture Indicated? NO Urine Glucose NEGATIVE (NEGATIVE) mg/dL Urine HCG, Qual NEGATIVE (Negative) - Progress Progress: unchanged Progress Note: 01/23/22 05:03 CAT scan of the abdomen pelvis shows a normal appendix. There is a malpositioned IUD. The findings were discussed with the patient. There were no other acute intra-abdominal or intrapelvic findings. Counseled pt/family regarding: lab results, diagnosis, need for follow-up, rad results - Departure Departure Disposition: Home Clinical Impression: Constipation, Malpositioned IUD Condition: Stable Critical Care Time: No Referrals: FRANCK GERMAN NP [Primary Care Provider] - Follow up/PCP as directed Additional Instructions: Drink your magnesium citrate rapidly as discussed. Wait approximately 45 minutes after the magnesium citrate and then give yourself a fleets enema rectally. Make sure you are active and ambulating. Drink plenty of fluids. Increase fiber in your diet. Use MiraLAX as instructed on the package container. Follow-up with your primary care provider and your punch press operator for further evaluation and management.
[2022-01-23] MEDS ORDERED: CITROMA 296 ML ONE (04:19)
[2022-01-23 05:03] VITALS: BP 125/68; PULSE 74
[2022-01-23 05:04] VITALS: O2SAT 98
--- NOTE | 2022-01-23 16:57 | XRAY ---
Exam: CT of the abdomen and pelvis without IV contrast from 01/23/2022. CTDI: 7.65 mGy Comparison: CT of the abdomen and pelvis without IV contrast from 06/05/2010. Indication: 21-year-old female states she awoke with upper abdominal pain which has increased in severity. Technique: Non-IV contrast axial images were obtained through the abdomen and pelvis. Reconstructed coronal and sagittal images were created and reviewed. Findings: On the CT director of scout work image, there is a slight rotary component of the lumbar spine toward the left centered at L3-L4. The lung bases appear clear. The heart size is normal. Assessment of the solid organs is limited without the use of IV contrast. The liver appears of normal size and reveals no definite mass. No intrahepatic biliary duct distention is seen. The gallbladder is partially contracted. No intraluminal calcifications are seen. The spleen measures 11.5 cm in transverse diameter and is remarkable for a few scattered calcified granulomas. The pancreas appears normal. I note calcification of the right adrenal gland which is unchanged from 06/05/2010. The left adrenal gland appears unremarkable. The kidneys are of unremarkable size and shape. No renal calculi or hydronephrosis is seen. The abdominal aorta appears of normal diameter. No abnormal retroperitoneal lymphadenopathy is seen. I see no free intraperitoneal air or ventral abdominal wall hernia. Scattered stool is seen throughout the colon. There is no evidence of bowel obstruction. The appendix within the right lower quadrant appears unremarkable. The uterus is anteflexed. An IUD is seen within the uterine fundus. The arms of the intrauterine device extend in a cranial to caudal direction rather than laterally towards the cornu. This suggests some malrotation. Correlate clinically. The urinary bladder is mostly empty. No other pelvic mass or lymphadenopathy is seen. No free intraperitoneal fluid is seen. The ovaries appear grossly unremarkable. The skeleton reveals no acute fracture or other aggressive bone lesion. Impression: 1. It appears that the IUD is rotated in the uterine fundus suggesting malposition. Correlate clinically. 2. Stable right adrenal gland calcifications. 3. Old granulomatous disease noted within spleen. 4. No other acute process is seen within the abdomen or pelvis.
== END 2022-01-23 05:14 | disposition home or self-care (01) ==
LOC: ED 01:18
DX: K59.00 Constipation, unspecified (principal); T83.32XA Displacement of intrauterine contraceptive device, initial encounter; R10.84 Generalized abdominal pain; Z79.899 Other long term (current) drug therapy
CPT/HCPCS: 74176; 81015; 81025; 99283; A9270-GY

== ENCOUNTER 2022-01-29 10:20 | Observation (INO) | payer OTHER ==
[2022-01-29] MEDS ORDERED: OMNIPEN 2 GM*** 2 G in Sodium Chloride 100ML MINI-BAG PLUS 100 ML IV ONE (10:45)
[2022-01-29] MEDS ORDERED: CLINDAMYCIN-D5W 900 MG/50 ML*** 900 MG/50 ML BAG IV ONE (11:15)
[2022-01-29] MEDS ORDERED: SODIUM CHLORIDE 0.9% IV ONE (11:15)
[2022-01-29] MEDS ORDERED: GARAMYCIN IV ONE (11:15)
[2022-01-29 11:23] LABS: Hemoglobin 11.6 g/dL (12.0-16.0); Mean Cell Volume 88.5 fL (78-100); Mean Corpuscular Hemoglobin 27.8 pg (26-32); Mean Corpuscular Hgb Concent. 31.4 g/dL (32-36); Mean Platelet Volume 9.6 fL (7.5-11.0); Platelet Count 333 x10^3/uL (150-450); Red Blood Count 4.18 x10^6/uL (4.1-5.4); Red Cell Distribution Width 14.8 % (11.5-14.0); White Blood Count 23.9 x10^3/uL (4.0-10.5)
[2022-01-29 12:04] LABS: Absolute Neutrophil Ct (ANC) 20.61 x10^3/uL (1.4-6.9); Basophil (Absolute #) 0.04 x10^3/uL (0-0.4); Eosinophil % 0.6 % (0.00-5.0); Eosinophil (Absolute #) 0.15 x10^3/uL (0-0.5); Lymphocyte (Absolute #) 2.06 x10^3/uL (1.0-4.6); Lymphocytes % 8.6 % (24.0-44.0); Monocyte (Absolute #) 1.08 x10^3/uL (0.0-1.3); Monocytes % 4.5 % (0.0-12.0); Neutrophil % 85.7 % (36.0-66.0)
[2022-01-29 12:30] LABS: INFLUENZA A NEGATIVE (NEGATIVE); INFLUENZA B NEGATIVE (NEGATIVE); RESPIRATORY SYNCTIAL VIRUS NEGATIVE (Negative); SARS-CoV-2 Xpert Express NEGATIVE (NEGATIVE)
[2022-01-29 14:03] LABS: Slide Review 1 YES
--- NOTE | 2022-01-29 14:21 | PCM.HP ---
History of Present Illness - Chief Complaint Chief Complaint: abdominal pain, pelvic inflammation History of Present Illness: is a 21 year old female. 21 yo with recent hx of sonny iud insertion on august 27, 2021 presented to ER on january 23 for abdominal pelvic pain. pt ct scan done indicating rotated iud however upon discharge felt better until today presented in the office with moderate to severe pelvic pain. pt was examined to having severe cervical motion tenderness on exam and IUD was subsequently removed today. denies nausea or vomiting. Medications & Allergies Home Medications: Home Medication List Sertraline HCl [Zoloft] 100 mg PO DAILY 10/01/20 [History Confirmed 01/29/22] Buspirone HCl 5 mg [Buspar 5 mg] 10 mg PO DAILY 05/10/21 [History Confirmed 01/29/22] Fluticasone Propionate [Flonase NASAL] 16 gm NS DAILY 07/08/21 [History Confirmed 01/29/22] Lisdexamfetamine Dimesylate [Vyvanse] 30 mg PO DAILY 01/29/22 [History Confirmed 01/29/22] Allergies/Adverse Reactions: Allergies Allergy/AdvReac Type Severity Reaction Status Date / Time No Known Drug Allergies Allergy Verified 01/29/22 12:47 - Past Medical History Past Medical History: Yes Neurological History: No Pertinent History ENT History: No Pertinent History Cardiac History: No Pertinent History CARDIAC HISTORY: No Pertinent History Respiratory History: No Pertinent History Endocrine Medical History: No Pertinent History Musculoskelatal History: No Pertinent History GI Medical History: No Pertinent History History: No Pertinent History Pyscho-Social History: Attention Deficit Disorder, Depression Reproductive Disorders: No Pertinent History Comment: T&A removed 2008. wisdom teeth removed - Female History Are you now?: No - Past Surgical History Past Surgical History: Yes Neuro Surgical History: No Pertinent History Cardiac History: No Pertinent History Respiratory Surgery: No Pertinent History GI Surgical History: No Pertinent History Genitourinary Surgical Hx: No Pertinent History Musculskeletal Surgical Hx: No Pertinent History Female Surgical History: No Pertinent History Other Surgical History: WISDOM TEETH - Social History Smoking Status: Never smoker Exposure to second hand smoke: Yes Alcohol: Occasionally Drug Use: none Significant Family History: no pertinent family hx - Physical Exam Vital Signs: Vital Signs - 24 hr Temp Pulse Resp BP BP Pulse Ox 01/29/22 12:45 97.5 F 100 H 16 126/58 98 01/29/22 10:45 96.8 F 77 20 108/44 100 01/29/22 10:42 96.8 F 77 20 108/44 100 General Appearance: severe distress Neurologic Exam: oriented x 3 Gastrointestinal/Abdomen Exam: tenderness (moderate to severe tenderness, no rebound or guarding) Pelvic Exam: cervical motion tenderness, vaginal discharge (severe cervical motion tenderness) Results - Labs Lab/Micro Results: Lab Results-Last 24 Hours 01/29/22 01/29/22 Range/Units 11:21 11:52 WBC 23.9 H (4.0-10.5) x10^3/uL RBC 4.18 (4.1-5.4) x10^6/uL Hgb 11.6 L (12.0-16.0) g/dL Hct 37.0 (35-47) % MCV 88.5 (78-100) fL MCH 27.8 (26-32) pg MCHC 31.4 L (32-36) g/dL RDW 14.8 H (11.5-14.0) % Plt Count 333 (150-450) x10^3/uL MPV 9.6 (7.5-11.0) fL Gran % 85.7 H (36.0-66.0) % Immature Gran % (Auto) 0.4 (0.00-0.4) % Nucleat RBC Rel Count 0.0 (0.00-0.1) % Eos # (Auto) 0.15 (0-0.5) x10^3/uL Immature Gran # (Auto) 0.10 H (0.00-0.03) x10^3u/L Absolute Lymphs (auto) 2.06 (1.0-4.6) x10^3/uL Absolute Monos (auto) 1.08 (0.0-1.3) x10^3/uL Absolute Nucleated RBC 0.00 (0.00-0.01) x10^3u/L Lymphocytes % 8.6 L (24.0-44.0) % Monocytes % 4.5 (0.0-12.0) % Eosinophils % 0.6 (0.00-5.0) % Basophils % 0.2 (0.0-0.4) % Absolute Granulocytes 20.61 H (1.4-6.9) x10^3/uL Basophils # 0.04 (0-0.4) x10^3/uL Influenza Type A Ag NEGATIVE (NEGATIVE) Influenza Type B Ag NEGATIVE (NEGATIVE) RSV (PCR) NEGATIVE (Negative) SARS-CoV-2 (PCR) NEGATIVE (NEGATIVE) Slides for Path Review YES Assessment/Plan (1) Pelvic inflammatory disease Current Visit: Yes Status: Acute Code(s): N73.9 - FEMALE PELVIC INFLAMMATORY DISEASE, UNSPECIFIED
[2022-01-29] MEDS ORDERED: MEDICATION INTERVENTION MC SCH (15:00)
[2022-01-29] MEDS: OMNIPEN 2 GM*** 2 G in Sodium Chloride 100ML MINI-BAG PLUS 100 ML IV SCH ×2 (17:59→23:29)
[2022-01-29] MEDS: CLINDAMYCIN-D5W 900 MG/50 ML*** 900 MG/50 ML BAG IV SCH (20:53)
[2022-01-29] MEDS ORDERED: Sodium Chloride 0.9% 500 ML 500 ML IV ONE (20:55)
[2022-01-29] MEDS ORDERED: TYLENOL EXTRA STRENGTH 500 MG PO PRN (22:10)
[2022-01-29] MEDS ORDERED: Sodium Chloride 0.9% 500 ML 500 ML IV SCH (22:15)
[2022-01-30 00:37] VITALS: O2SAT 98
[2022-01-30] MEDS: CLINDAMYCIN-D5W 900 MG/50 ML*** 900 MG/50 ML BAG IV SCH (04:58)
[2022-01-30 05:22] LABS: Absolute Neutrophil Ct (ANC) 9.11 x10^3/uL (1.4-6.9); Basophil (Absolute #) 0.03 x10^3/uL (0-0.4); Eosinophil % 2.1 % (0.00-5.0); Hematocrit 34.5 % (35-47); Hemoglobin 11.1 g/dL (12.0-16.0); Lymphocyte (Absolute #) 3.69 x10^3/uL (1.0-4.6); Lymphocytes % 26.3 % (24.0-44.0); Mean Cell Volume 86.5 fL (78-100); Mean Corpuscular Hemoglobin 27.8 pg (26-32); Mean Corpuscular Hgb Concent. 32.2 g/dL (32-36); Monocyte (Absolute #) 0.84 x10^3/uL (0.0-1.3); Neutrophil % 65.1 % (36.0-66.0); Platelet Count 347 x10^3/uL (150-450); Red Blood Count 3.99 x10^6/uL (4.1-5.4); Red Cell Distribution Width 15.2 % (11.5-14.0)
[2022-01-30 05:45] LABS: Creatinine 1 0.59 mg/dL (0.52-1.04); EST GLOMERULAR FILTRATION RATE > 60.0 ML/MIN
[2022-01-30] MEDS: OMNIPEN 2 GM*** 2 G in Sodium Chloride 100ML MINI-BAG PLUS 100 ML IV SCH (06:06)
[2022-01-30] MEDS ORDERED: TYLENOL EXTRA STRENGTH 500 MG PO PRN (07:15)
[2022-01-30 07:52] VITALS: BP 113/56; PULSE 81
--- NOTE | 2022-01-30 08:44 | PCM.DS ---
Discharge Summary Date of Admission: 01/29/22 12:45 Admitting Physician: DUANE AMOR DO Primary Care Provider: FRANCK GERMAN Allergies Allergies No Known Drug Allergies Allergy (Verified 01/29/22 12:47) Hospital Summary - Hospital Course Hospital Course: patient was admitted by Dr Amor, had PID with IUD in place, had it removed and admitted for IV abx. wbc improved to 14,000, patient is ambulating and her pain is dramatically better. she has minimal tenderness and is tolerating po, afebrile since admission and looks good today. - Vitals & Intake/Output Vital Signs: Vital Signs Temperature 97.9 F 01/30/22 07:51 Pulse Rate 81 01/30/22 07:51 Respiratory Rate 16 01/30/22 07:51 Blood Pressure 113/56 01/30/22 07:51 O2 Sat by Pulse Oximetry 98 01/30/22 07:51 Intake & Output: Intake & Output 01/27/22 01/28/22 01/29/22 01/30/22 11:59 11:59 11:59 11:59 Intake Total 964 Balance 964 Weight 87.1 kg 86.7 kg - Lab Result Diagrams: 01/30/22 05:14 01/30/22 05:14 Lab Results-Last 24 Hrs: Lab Results-Last 24 Hours 01/29/22 01/29/22 01/29/22 Range/Units 11:21 11:52 16:02 WBC 23.9 H (4.0-10.5) x10^3/uL RBC 4.18 (4.1-5.4) x10^6/uL Hgb 11.6 L (12.0-16.0) g/dL Hct 37.0 (35-47) % MCV 88.5 (78-100) fL MCH 27.8 (26-32) pg MCHC 31.4 L (32-36) g/dL RDW 14.8 H (11.5-14.0) % Plt Count 333 (150-450) x10^3/uL MPV 9.6 (7.5-11.0) fL Gran % 85.7 H (36.0-66.0) % Immature Gran % (Auto) 0.4 (0.00-0.4) % Nucleat RBC Rel Count 0.0 (0.00-0.1) % Eos # (Auto) 0.15 (0-0.5) x10^3/uL Immature Gran # (Auto) 0.10 H (0.00-0.03) x10^3u/L Absolute Lymphs (auto) 2.06 (1.0-4.6) x10^3/uL Absolute Monos (auto) 1.08 (0.0-1.3) x10^3/uL Absolute Nucleated RBC 0.00 (0.00-0.01) x10^3u/L Lymphocytes % 8.6 L (24.0-44.0) % Monocytes % 4.5 (0.0-12.0) % Eosinophils % 0.6 (0.00-5.0) % Basophils % 0.2 (0.0-0.4) % Absolute Granulocytes 20.61 H (1.4-6.9) x10^3/uL Basophils # 0.04 (0-0.4) x10^3/uL Creatinine (0.52-1.04) mg/dL Estimated GFR ML/MIN Random Gentamicin 3.48 ug/mL Influenza Type A Ag NEGATIVE (NEGATIVE) Influenza Type B Ag NEGATIVE (NEGATIVE) RSV (PCR) NEGATIVE (Negative) SARS-CoV-2 (PCR) NEGATIVE (NEGATIVE) Slides for Path Review YES 01/30/22 01/30/22 Range/Units 05:14 05:14 WBC 14.0 H (4.0-10.5) x10^3/uL RBC 3.99 L (4.1-5.4) x10^6/uL Hgb 11.1 L (12.0-16.0) g/dL Hct 34.5 L (35-47) % MCV 86.5 (78-100) fL MCH 27.8 (26-32) pg MCHC 32.2 (32-36) g/dL RDW 15.2 H (11.5-14.0) % Plt Count 347 (150-450) x10^3/uL MPV 10.0 (7.5-11.0) fL Gran % 65.1 (36.0-66.0) % Immature Gran % (Auto) 0.3 (0.00-0.4) % Nucleat RBC Rel Count 0.0 (0.00-0.1) % Eos # (Auto) 0.30 (0-0.5) x10^3/uL Immature Gran # (Auto) 0.04 H (0.00-0.03) x10^3u/L Absolute Lymphs (auto) 3.69 (1.0-4.6) x10^3/uL Absolute Monos (auto) 0.84 (0.0-1.3) x10^3/uL Absolute Nucleated RBC 0.00 (0.00-0.01) x10^3u/L Lymphocytes % 26.3 (24.0-44.0) % Monocytes % 6.0 (0.0-12.0) % Eosinophils % 2.1 (0.00-5.0) % Basophils % 0.2 (0.0-0.4) % Absolute Granulocytes 9.11 H (1.4-6.9) x10^3/uL Basophils # 0.03 (0-0.4) x10^3/uL Creatinine 0.59 (0.52-1.04) mg/dL Estimated GFR > 60.0 ML/MIN Random Gentamicin ug/mL Influenza Type A Ag (NEGATIVE) Influenza Type B Ag (NEGATIVE) RSV (PCR) (Negative) SARS-CoV-2 (PCR) (NEGATIVE) Slides for Path Review Discharge Exam General Appearance: no apparent distress, alert Respiratory Exam: normal breath sounds, lungs clear, No respiratory distress Cardiovascular Exam: regular rate/rhythm, normal heart sounds Gastrointestinal/Abdomen Exam: soft, No tenderness, No mass Skin Exam: normal color, warm, dry Final Diagnosis/Problem List - Final Discharge Diagnosis/Problem (1) Pelvic inflammatory disease Current Visit: Yes Status: Acute Assessment & Plan: has po doxycycline with her at the bedside from Dr Amor, doing much better. marybeth basilio discharge home today, advised if she develops a fever or pain worsens at home to call over the weekend. Code(s): N73.9 - FEMALE PELVIC INFLAMMATORY DISEASE, UNSPECIFIED - Discharge Disposition: Home, Self-Care Condition: Stable Prescriptions: Continue Sertraline HCl [Zoloft] 100 mg PO DAILY Buspirone HCl 5 mg [Buspar 5 mg] 10 mg PO DAILY Fluticasone Propionate [Flonase NASAL] 16 gm NS DAILY Lisdexamfetamine Dimesylate [Vyvanse] 30 mg PO DAILY Additional Instructions: take doxycycline as prescribed by Dr Amor, if your pain worsens or you develop fever or new concerns after discharge call MD Follow up with: FRANCK GERMAN NP [Primary Care Provider] -
[2022-01-30] MEDS ORDERED: LISDEXAMFETAMINE DIMESYLATE 30 MG PO SCH (10:00)
[2022-01-30] MEDS ORDERED: BUSPAR 5 MG PO SCH (10:00)
[2022-01-30] MEDS ORDERED: Flonase NASAL NS SCH (10:00)
[2022-01-30] MEDS ORDERED: SODIUM CHLORIDE 0.9% IV SCH (10:00)
[2022-01-30] MEDS ORDERED: NON-FORMULARY ITEM (Sertraline Hcl [Zoloft] 100 MG Tablet) PO SCH (10:00)
[2022-01-30] MEDS ORDERED: GARAMYCIN IV SCH (10:00)
[2022-01-30] MEDS ORDERED: ZOLOFT 50 MG TABLET PO SCH (10:00)
== END 2022-01-30 09:15 | disposition home or self-care (01) ==
LOC: INFUSION 10:20 → MED SURG 12:45
PROVIDERS: ADMIT Obstetrics & Gynecology; ATTEND Obstetrics & Gynecology
DX: N73.9 Female pelvic inflammatory disease, unspecified (principal); Z79.899 Other long term (current) drug therapy; Z20.828 Contact with and (suspected) exposure to other viral communicable diseases
CPT/HCPCS: 0241U; 36415; 80170; 82565; 85025; 96365; 96367; 99211; G0378; J0290; J1580; A9270-GY